=== PATIENT | female | born 1995 | race Caucasian/White ===

== ENCOUNTER 2016-10-31 18:41 | Emergency (ER) | payer BC ==
[~2016-10-31] VITALS: Ht 157.5 cm; Wt 50.0 kg
[~2016-10-31 18:41] MED LIST: ADVAIR DISKUS1 DS1 IH; AMITRIPTYLINE10 MG PO; KETOROLAC TROME10 MG PO; MACROBID 100 M100 MG PO; PYRIDIUM200 M2 PO; SINGULAIR10 MG PO; VENTOLIN0.09 MG IH
[2016-10-31] MEDS ORDERED: AVIANE 0.02 MG-1 TAB (18:58)
[2016-10-31] MEDS ORDERED: PREDNISONE20 M1 PO (20:09)
[2016-10-31 20:31] VITALS: BP 115/56
[2016-11-01] MEDS ORDERED: PREDNISONE20 M1 PO (21:55)
== END 2016-10-31 20:29 | disposition home or self-care (01) ==
LOC: ED 18:41
DX: J45.909 Unspecified asthma, uncomplicated (principal); R06.4 Hyperventilation

== ENCOUNTER 2016-11-01 20:57 | Emergency (ER) | payer BC ==
[~2016-11-01] VITALS: Ht 157.5 cm; Wt 50.0 kg
[~2016-11-01 20:57] MED LIST changes: +AVIANE 0.02 MG-1 TAB; +PREDNISONE20 M1 PO
[2016-11-01] MEDS ORDERED: PREDNISONE20 M1 PO (21:55)
[2016-11-01 22:06] VITALS: BP 110/65
== END 2016-11-01 22:06 | disposition home or self-care (01) ==
LOC: ED 20:57
DX: J45.901 Unspecified asthma with (acute) exacerbation (principal)
CPT/HCPCS: J7512

== ENCOUNTER → 2016-11-02 | Outpatient (CLI) | payer BC ==
[~2016-11-02] VITALS: Ht 157.5 cm; Wt 50.0 kg
[2016-11-02 10:43] VITALS: BP 110/64
== END ==
LOC: AMSURD 10:32
DX: R07.89 Other chest pain (principal); R06.02 Shortness of breath

== ENCOUNTER → 2016-11-05 | Outpatient (CLI) | payer BC ==
[2016-11-02 10:43] VITALS: BP 110/64
== END ==
LOC: RAD 12:00
DX: R00.2 Palpitations (principal)

== ENCOUNTER → 2017-03-16 | Outpatient (CLI) | payer BC ==
[2016-11-02 10:43] VITALS: BP 110/64
== END ==
LOC: LAB 15:16
PROVIDERS: Nurse Practitioner Family
DX: R53.81 Other malaise (principal); M62.838 Other muscle spasm; Z02.1 Encounter for pre-employment examination

== ENCOUNTER → 2017-07-06 | Outpatient (CLI) | payer BC ==
[2016-11-02 10:43] VITALS: BP 110/64
[2017-07-06 11:25] LABS: URINE APPEARANCE HAZY; URINE BILIRUBIN NEGATIVE (NEGATIVE); URINE BLOOD NEGATIVE (NEGATIVE); URINE COLOR YELLOW; URINE GLUCOSE NEGATIVE (NEGATIVE); URINE KETONE 2+ (NEGATIVE); URINE LEUKOCYTE ESTERASE NEGATIVE (NEGATIVE); URINE MUCUS PRESENT (NOT PRESENT); URINE NITRATE NEGATIVE (NEGATIVE); URINE PROTEIN(semi-quant) NEGATIVE (NEGATIVE); URINE UROBILINOGEN NORMAL (NORMAL)
== END ==
LOC: LAB 10:57
PROVIDERS: Nurse Practitioner Family
DX: M54.5 Low back pain (principal); A08.39 Other viral enteritis

== ENCOUNTER → 2017-11-29 | Outpatient (CLI) | payer BC ==
[2016-11-02 10:43] VITALS: BP 110/64
[2017-11-29 15:11] LABS: ALBUMIN 4.4 g/dL (3.5-5.0); BUN/CREATININE RATIO 18.2 (6.0-26.0); CALCIUM 8.8 mg/dL (8.4-10.2); POTASSIUM 3.8 mmol/L (3.6-5.0); TOTAL BILIRUBIN 0.2 mg/dL (0.2-1.3); TOTAL PROTEIN 8.3 g/dL (6.3-8.2)
[2017-11-29 15:36] LABS: EOS % 0.3 % (0.1-4.0); HEMATOCRIT 38.3 % (35.0-45.0); HEMOGLOBIN 12.4 g/dL (12.0-15.0); LYMPH# 2.5 (1.20-3.40); MEAN CELL VOLUME 91 fl (78-95); MEAN CORPUSCULAR HEMOGLOBIN 29 pg (26-32); MEAN CORPUSCULAR HGB CONC 32 g/dL (33-37); MEAN PLATELET VOLUME 11.3 fl (7.4-10.4); MONO # 0.5 (0.10-0.60); NEU # 3.1 (1.40-6.50); PLATELET COUNT 214 K/mm3 (130-400); RED BLOOD COUNT 4.22 M/mm3 (4.10-5.30); RED CELL DISTRIBUTION WIDTH 12.4 % (11.5-14.5); WHITE BLOOD COUNT 6.1 K/mm3 (4.8-10.8)
== END ==
LOC: LAB 14:33
PROVIDERS: Nurse Practitioner Family
DX: R53.83 Other fatigue (principal)

== ENCOUNTER → 2017-12-05 | Outpatient (CLI) | payer BC ==
[2016-11-02 10:43] VITALS: BP 110/64
[2017-12-05 12:54] LABS: URINE APPEARANCE HAZY; URINE BILIRUBIN NEGATIVE (NEGATIVE); URINE BLOOD NEGATIVE (NEGATIVE); URINE COLOR YELLOW; URINE GLUCOSE NEGATIVE (NEGATIVE); URINE KETONE NEGATIVE (NEGATIVE); URINE LEUKOCYTE ESTERASE NEGATIVE (NEGATIVE); URINE NITRATE NEGATIVE (NEGATIVE); URINE PROTEIN(semi-quant) TRACE mg/dL (NEGATIVE); URINE UROBILINOGEN NORMAL (NORMAL)
== END ==
LOC: LAB 10:23
PROVIDERS: Nurse Practitioner Family
DX: R53.81 Other malaise (principal); J01.01 Acute recurrent maxillary sinusitis

== ENCOUNTER → 2019-08-04 | Outpatient (CLI) | payer BC ==
[2016-11-02 10:43] VITALS: BP 110/64
[2019-08-04 12:44] LABS: HEMATOCRIT 37.1 % (37.0-47.0); HEMOGLOBIN 11.6 g/dL (12.5-16.0); LYMPH# 1.7 (1.50-4.00); MEAN CELL VOLUME 87 fl (78-100); MEAN CORPUSCULAR HEMOGLOBIN 27 pg (27-31); MEAN CORPUSCULAR HGB CONC 31 g/dL (33-37); MEAN PLATELET VOLUME 10.5 fl (7.4-10.4); MONO # 1.1 (0.20-0.80); NEU # 8.1 (1.40-6.50); PLATELET COUNT 211 K/mm3 (130-400); RED BLOOD COUNT 4.27 M/mm3 (4.10-5.30); RED CELL DISTRIBUTION WIDTH 14.1 % (11.5-14.5); WHITE BLOOD COUNT 10.9 K/mm3 (4.8-10.8)
[2019-08-04 12:55] LABS: ALBUMIN 4.4 g/dL (3.5-5.0); POTASSIUM 3.5 mmol/L (3.5-5.1)
[2019-08-04 12:57] LABS: CALCIUM 9.5 mg/dL (8.3-10.5)
[2019-08-04 12:58] LABS: TOTAL PROTEIN 7.6 g/dL (6.4-8.3)
[2019-08-04 13:00] LABS: TOTAL BILIRUBIN 0.3 mg/dL (0.2-1.2)
[2019-08-04 13:42] LABS: URINE APPEARANCE CLOUDY; URINE BILIRUBIN NEGATIVE (NEGATIVE); URINE BLOOD 50 ery/uL (NEGATIVE); URINE COLOR YELLOW; URINE GLUCOSE NEGATIVE (NEGATIVE); URINE KETONE NEGATIVE (NEGATIVE); URINE LEUKOCYTE ESTERASE 2+ (NEGATIVE); URINE NITRATE POSITIVE (NEGATIVE); URINE PROTEIN(semi-quant) 2+ mg/dL (NEGATIVE); URINE UROBILINOGEN NORMAL (NORMAL)
[2019-08-04 13:43] LABS: URINE WBC >50 /hpf (0-3)
== END ==
LOC: LAB 12:30
PROVIDERS: Nurse Practitioner Primary Care
DX: N10 Acute pyelonephritis (principal)

== ENCOUNTER → 2019-10-01 | Outpatient (CLI) | payer BC ==
[2016-11-02 10:43] VITALS: BP 110/64
== END ==
LOC: LAB 11:43
DX: J02.9 Acute pharyngitis, unspecified (principal); M79.10 Myalgia, unspecified site

== ENCOUNTER → 2020-01-30 | Outpatient (CLI) | payer BC ==
[2016-11-02 10:43] VITALS: BP 110/64
== END ==
LOC: LAB 10:18
DX: N39.0 Urinary tract infection, site not specified (principal)

== ENCOUNTER → 2020-07-16 | Outpatient (CLI) | payer OTHER ==
[2016-11-02 10:43] VITALS: BP 110/64
[2020-07-16 15:24] LABS: EOS % 0.4 % (1.0-5.0); HEMATOCRIT 40.8 % (37.0-47.0); HEMOGLOBIN 12.7 g/dL (12.5-16.0); LYMPH# 2.1 (1.50-4.00); MEAN CELL VOLUME 91 fl (78-100); MEAN CORPUSCULAR HEMOGLOBIN 28 pg (27-31); MEAN CORPUSCULAR HGB CONC 31 g/dL (33-37); MONO # 0.4 (0.20-0.80); NEU # 4.2 (1.40-6.50); PLATELET COUNT 241 K/mm3 (130-400); RED BLOOD COUNT 4.49 M/mm3 (4.10-5.30); RED CELL DISTRIBUTION WIDTH 13.1 % (11.5-14.5); WHITE BLOOD COUNT 6.7 K/mm3 (4.8-10.8)
[2020-07-16 15:33] LABS: ALBUMIN 4.7 g/dL (3.5-5.0); POTASSIUM 3.7 mmol/L (3.5-5.1)
[2020-07-16 15:34] LABS: CALCIUM 9.4 mg/dL (8.3-10.5)
[2020-07-16 15:35] LABS: TOTAL PROTEIN 8.1 g/dL (6.4-8.3)
[2020-07-16 15:37] LABS: TOTAL BILIRUBIN 0.4 mg/dL (0.2-1.2)
== END ==
LOC: LAB 15:09
PROVIDERS: Physician Assistant
DX: Z00.00 Encounter for general adult medical examination without abnormal findings (principal); Z13.29 Encounter for screening for other suspected endocrine disorder; R53.83 Other fatigue

== ENCOUNTER → 2020-09-24 | Outpatient (CLI) | payer OTHER ==
[2016-11-02 10:43] VITALS: BP 110/64
== END ==
LOC: AMSURD 15:10
DX: N39.0 Urinary tract infection, site not specified (principal)

== ENCOUNTER → 2021-04-28 | Outpatient (CLI) | payer MEDICAID | LOC: LAB 10:38 | DX: N39.0 Urinary tract infection, site not specified (principal) ==

== ENCOUNTER → 2021-06-03 | Outpatient (CLI) | payer MEDICAID | LOC: LAB 11:38 | DX: N39.0 Urinary tract infection, site not specified (principal) ==

== ENCOUNTER → 2021-07-13 | Outpatient (CLI) | payer MEDICAID | LOC: LAB 14:18 | DX: U07.1 COVID-19 (principal); R30.9 Painful micturition, unspecified ==

== ENCOUNTER → 2021-08-05 | Outpatient (CLI) | payer MEDICAID | LOC: LAB 10:13 | DX: N39.0 Urinary tract infection, site not specified (principal) ==

== ENCOUNTER → 2021-11-13 | Outpatient (CLI) | payer MEDICAID | LOC: LAB 11:17 | DX: N39.0 Urinary tract infection, site not specified (principal) ==

== ENCOUNTER → 2021-12-28 | Outpatient (CLI) | payer MEDICAID | LOC: LAB 12:06 | DX: N20.0 Calculus of kidney (principal); N30.20 Other chronic cystitis without hematuria ==

== ENCOUNTER → 2021-12-31 | Outpatient (CLI) | payer MEDICAID | LOC: RAD 12:47 | DX: N20.0 Calculus of kidney (principal) ==

== ENCOUNTER → 2022-01-06 | Outpatient (CLI) | payer MEDICAID ==
[2022-01-06 13:36] LABS: URINE APPEARANCE CLEAR; URINE BILIRUBIN NEGATIVE (NEGATIVE); URINE BLOOD NEGATIVE (NEGATIVE); URINE COLOR YELLOW; URINE GLUCOSE NEGATIVE (NEGATIVE); URINE KETONE NEGATIVE (NEGATIVE); URINE LEUKOCYTE ESTERASE NEGATIVE (NEGATIVE); URINE NITRATE NEGATIVE (NEGATIVE); URINE PROTEIN(semi-quant) NEGATIVE (NEGATIVE); URINE UROBILINOGEN NORMAL (NORMAL)
== END ==
LOC: LAB 12:43
PROVIDERS: Nurse Practitioner
DX: R30.0 Dysuria (principal); R35.0 Frequency of micturition

== ENCOUNTER → 2022-01-18 | Outpatient (CLI) | payer MEDICAID | LOC: RAD 01-14 13:00 | DX: N20.0 Calculus of kidney (principal) | CPT/HCPCS: Q9967 ==

== ENCOUNTER → 2023-03-19 | Outpatient (CLI) | payer OTHER | LOC: LAB 15:00 | DX: J45.21 Mild intermittent asthma with (acute) exacerbation (principal); B34.9 Viral infection, unspecified; Z3A.10 10 weeks gestation of pregnancy; Z20.822 Contact with and (suspected) exposure to COVID-19 ==

== ENCOUNTER → 2023-06-18 | Outpatient (CLI) | payer MEDICAID | LOC: LAB 11:05 | DX: J02.9 Acute pharyngitis, unspecified (principal) ==

== ENCOUNTER → 2024-06-13 | Outpatient (CLI) | payer MEDICAID | LOC: LAB 09:06 | DX: U07.1 COVID-19 (principal); R50.9 Fever, unspecified ==